=== PATIENT | female | born 1975 | race Caucasian/White ===

== ENCOUNTER 2021-06-29 08:07 | Outpatient (REF) | payer OTHER, SELFPAY ==
[2021-06-29 09:14] LABS: MANUAL DIFF FLAG NO
[2021-06-29 09:41] LABS: Basophils Percent Auto 0.9 % (0-2); Eosinophils Absolute Auto 0.2 X10*3/uL (0.0-0.4); Eosinophils Percent Auto 3.9 % (0-4); Hematocrit 36.4 % (37.0-47.0); Hemoglobin 11.5 g/dl (12.0-16.0); Imm Gran Abs Auto 0.01 X10*3/uL (0.00-0.03); Imm Gran Pct Auto 0.2 % (0.0-0.4); Lymphocytes Absolute Auto 1.2 X10*3/uL (1.2-4.9); Lymphocytes Percent Auto 26.8 % (20-40); Mean Corpuscular HGB Conc 31.6 g/dl (31.0-35.0); Mean Corpuscular Hemoglobin 29.9 pg (27.0-33.0); Mean Corpuscular Volume 94.5 fL (80.0-98.0); Monocytes Absolute Auto 0.3 X10*3/uL (0.1-1.2); Monocytes Percent Auto 7.7 % (2-11); Neutrophils Absolute Auto 2.7 x10*3/uL (2.0-8.3); Neutrophils Percent Auto 60.5 % (45-73); Platelet Count 313 X10*3/uL (160-400); Red Blood Count 3.85 X10*6/uL (4.20-5.50); Red Cell Distribution Width 12.7 % (11.0-16.0); White Blood Count 4.4 X10*3/uL (4.8-10.8)
[2021-06-29 10:21] LABS: Creatinine Urine 116.84 mg/dL; Microalbum/Creatinine Ratio Ur 5.1 ug/mg cr
[2021-06-29 10:22] LABS: TSH reflex Free T4 1.81 uIU/mL (0.32-4.0)
[2021-07-01 12:40] LABS: Anti DNA DS Antibody <1 IU/mL; SM/Ribonucleoprotein Ab <1.0 NEG AI (<1.0 NEG); Smith Protein <1.0 NEG AI (<1.0 NEG)
== END 2021-06-29 08:08 | disposition home or self-care (01) ==
LOC: HO.LAB 08:07
PROVIDERS: PCP Physician Assistant Medical; Visit Provider Internal Medicine Rheumatology
DX: R76.8 Other specified abnormal immunological findings in serum (principal); R63.4 Abnormal weight loss; R29.2 Abnormal reflex; R51.9 Headache, unspecified; G89.29 Other chronic pain
CPT/HCPCS: 36415; 82043; 84443; 85025; 86225; 86235

== ENCOUNTER 2021-12-14 13:47 | Outpatient (REF) | payer OTHER, SELFPAY ==
--- NOTE | ~2021-12-14 | XR_ITS ---
EXAMINATION: XR ELBOW, RIGHT CLINICAL INFORMATION: Pain. COMPARISON: None TECHNIQUE: AP, lateral, and oblique views of the right elbow. FINDINGS: The bones and soft tissues are normal. No fracture or joint effusion. Alignment is anatomic. Joint spaces are maintained. XR/XR elbow RT min 3V IMPRESSION: Normal right elbow.
== END 2021-12-14 13:48 | disposition home or self-care (01) ==
LOC: HO.XRAY 13:47
PROVIDERS: Visit Provider Internal Medicine Rheumatology
DX: M25.521 Pain in right elbow (principal)
CPT/HCPCS: 73080

== ENCOUNTER 2022-09-12 10:28 | Outpatient (AMB) | payer OTHER, SELFPAY ==
[2022-09-12 10:36] VITALS: BP 118/72; PULSE 85; TEMP 37; BMI 25.4
--- NOTE | 2022-09-12 10:36 | A.OFFVIS_ITS ---
Intake Vital Signs 09/12/22 10:36 Height 5 ft 2 in Weight 139 lb 1.787 oz BMI 25.4 BP 118/72 Blood Pressure Location Rt brachial Position Sitting Pulse 85 Pulse Source Pulse Oximeter Temp 98.6 F Temp Source Skin Intake Visit Reasons: Cortisone injection right elbow Intake Note: Pt seen today for follow up. Requesting elbow injection, last inj 6mos ago. 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 She has received that injection back in December. She did well with that up until early July. There was no recent injury. 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 There has been no redness or swelling. She had no adverse effects from the previous injection. [facility] Medical History (Updated 01/12/22 @ 07:05 by Miguel A Bar MD) Chronic headaches Depression Hyper-reflexia Positive KATHARINA (antinuclear antibody) Surgical History History of hysterectomy for benign disease Social History Household Members: Spouse and Family Housing: House Are you a primary pharmacy customer care specialist to a significant other at home: No Do you presently have visiting nurse or other home services: No 75 years or older and lives alone: No Alcohol intake: current Alcohol intake frequency: a few times a month Alcohol type: hard liquor Patient Tobacco Use Status: Never used Tobacco e-Cigarette/Vaping Use: Never Used service: No Current occupational status: employed 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 Elbows:.? Right: Slight pain with the extremes of normal flexion or extension.? There is no tenderness over the joint space and mild tenderness over the lateral epicondyle.? There is no tenderness over the medial epicondyle.? There is no redness or swelling.? Left:? Normal pain-free range of motion without tenderness, swelling, increased warmth or erythema. Office Procedures Joint Injection/Drain Joint Injection/Drain Primary Site: right tennis elbow Injected: 40 mg of, Kenalog, with 0.5 mL of and 1% plain lidocaine Coding 71698 - Epicondyle Procedure code (CPT) selection complete Assessment & Plan Assessment & Plan (1) Lateral epicondylitis of right elbow: Code(s): M77.11 - Lateral epicondylitis, right elbow Plan The patient had some response to the corticosteroid injection from last year. Now after about 6 months or so the symptoms have returned from her lateral epicondylitis of the right elbow. We discussed the possibility of a surgical referral or physical therapy but she wants to try another corticosteroid injection. We did review potential side effects of corticosteroid injections. She had no previous problems with the last injection. There were no color changes in the skin over the lateral epicondylar region. The right lateral elbow was prepped with ChloraPrep and alcohol. Under a topical ethyl chloride spray the lateral epicondylar region was injected with 40 mg of triamcinolone and 0.5 the cc of 1% lidocaine. The patient tolerated the procedure without any acute adverse effects. She will see how this works out over the next few months. I told her to wear her tennis elbow splint when regular using the hands vigorously. This may help prevent recurrence. If this injection does not work or she wants to see a surgeon about this she could give us a call for a referral. Orders: Orders AMB Joint Injection/Aspiration Today M77.11 - Lateral epicondylitis, right elbow Coding Level of Care Code Procedure Only Diagnoses Lateral epicondylitis of right elbow M77.11 CPT Codes Coding - Joint 2: 88780 - Epicondyle ([id number])
== END 2022-09-12 11:49 | disposition home or self-care (01) ==
PROVIDERS: PCP Physician Assistant Medical; Visit Provider Internal Medicine Rheumatology
DX: M77.11 Lateral epicondylitis, right elbow (principal)
CPT/HCPCS: 20550

== ENCOUNTER → 2022-09-12 10:28 | Outpatient (BNVA) | payer OTHER, SELFPAY | PROVIDERS: PCP Physician Assistant Medical; Visit Provider Internal Medicine Rheumatology | DX: M77.11 Lateral epicondylitis, right elbow (principal) | CPT/HCPCS: 20550 ==